=== PATIENT | male | born 2000 | race Caucasian/White ===

== ENCOUNTER 2022-01-05 18:48 | Emergency (ER) | payer BC ==
[2022-01-05] MEDS ORDERED: TOPICAL SKIN ADHESIVE 1 EACH AMP TOPICAL ONE (19:20)
[2022-01-05] MEDS ORDERED: DIPH,PERTUS(ACELL)TETVAC-LF 0.5 ML VIAL IM ONE (19:20)
[2022-01-05 19:21] VITALS: RESP 18
--- NOTE | 2022-01-05 19:23 | ED ---
Wound/Laceration HPI - General Chief Complaint: Wound/Laceration Stated Complaint: Finger trama Time Seen by Provider: 01/05/22 18:54 Source: patient Mode of arrival: ambulatory Limitations: no limitations - History of Present Illness Initial Comments: Baldev is a healthy 21-year-old male presents the ER today for evaluation of laceration of the index finger. Patient reports that he was cleaning a knife when he slipped and cut his fingertip. No other injuries. Believes he got all of his childhood vaccinations but has not had any vaccines is an adult so therefore not up-to-date on tetanus. - Related Data Allergies Allergy/AdvReac Type Severity Reaction Status Date / Time No Known Allergies Allergy Verified 01/05/22 18:52 Review of Systems ROS Statement: Those systems with pertinent positive or pertinent negative responses have been documented in the HPI. ROS Other: All systems not noted in ROS Statement are negative. Past Medical History Past Medical History: No Reported History History of Any Multi-Drug Resistant Organisms: None Reported Past Surgical History: No Surgical Hx Reported Past Psychological History: No Psychological Hx Reported Smoking Status: Never smoker Past Alcohol Use History: Occasional Past Drug Use History: Marijuana General Exam - General Exam Comments Initial Comments: Physical Exam GENERAL: Patient is well-developed and well-nourished. Patient is nontoxic and well-hydrated and is in no distress. HENT: Normocephalic, Atraumatic. EYES: PERRL, EOMI PULMONARY: Unlabored respirations. CARDIOVASCULAR: RRR Warm and well perfused extremities ABDOMEN: Non-distended SKIN: superficial laceration to index finger, capillary oozing but no significant bleeding : Deferred NEUROLOGIC: Alert and oriented Normal speech Normal gait MUSCULOSKELETAL: Moving all extremities with no apparent injury PSYCHIATRIC: No SI/HI Limitations: no limitations Course Vital Signs 01/05/22 01/05/22 01/05/22 18:49 19:19 20:26 Temperature 98.3 F 98.8 F Pulse Rate 79 76 Respiratory 16 18 18 Rate Blood Pressure 134/68 146/80 O2 Sat by Pulse 96 96 Oximetry Medical Decision Making - Medical Decision Making Pt was seen, tetanus was updated wound was repaired with skin glue and patient was discharged home in stable condition Disposition Clinical Impression: Laceration Disposition: HOME SELF-CARE Condition: Stable Instructions (If sedation given, give patient instructions): Skin Adhesive Care (ED) Additional Instructions: Keep the area clean and dry, you can wash her hands but do not soak them in water, swim or have any prolonged wetness do not apply any neosporin or ointments Is patient prescribed a controlled substance at d/c from ED?: No Referrals: Atilio Uribe, [Primary Care Provider] - 1-2 days
[2022-01-05 20:27] VITALS: BP 146/80; PULSE 76; TEMP 98.8
== END 2022-01-05 20:27 | disposition home or self-care (01) ==
LOC: EC 18:48
DX: S61.218A Laceration without foreign body of other finger without damage to nail, initial encounter (principal); W26.0XXA Contact with knife, initial encounter; Z23 Encounter for immunization
CPT/HCPCS: 90471; 90715; 99282